=== PATIENT | male | born 1970 | race Caucasian/White ===

== ENCOUNTER 2017-06-23 16:35 | Emergency (ER) | payer BC ==
[~2017-06-23] VITALS: Ht 185.4 cm; Wt 128.0 kg
[2017-06-23 16:39] VITALS: BP 185/96; PULSE 87; RESP 24; TEMP 98.1; O2SAT 98
[2017-06-23] MEDS ORDERED: MORPHINE SULFATE 4 MG/ML INJ IV PUSH ONE (17:15)
[2017-06-23] MEDS ORDERED: ONDANSETRON HCL 4 MG/2 ML VIAL IV PUSH ONE (17:15)
[2017-06-23] MEDS ORDERED: SODIUM CHLOR 0.9% 1000 ML INJ 1,000 ML IV SCH (17:15)
[2017-06-23 17:17] VITALS: BP 177/92; PULSE 85; RESP 19; O2SAT 98
--- NOTE | 2017-06-23 17:21 | PD ---
HPI Chief Complaint: Headache Time Seen by Provider: 17:13 Travel History International Travel<30 days: No Contact w/Intl Traveler<30days: No Traveled to known affect area: No History of Present Illness HPI 47 years old male complains of headache. Patient states that headache nausea vomiting started about 2 weeks ago. Patient states the headache that he was seen at the walk-in clinic in [place] and was diagnosed with sinusitis. Patient was seen in emergency room after that. Patient states that he had EKG and blood tests done and was discharged home. Patient states that he has been doing well until headache started again about 4 days ago. Patient states that headache is severe throbbing headache diffuse over the head. Patient denies any visual change. Patient complains of photophobia. Patient denies any nausea vomiting. Patient denies any neck pain. Patient denies any chest pain or shortness of breath. Patient denies abdominal pain. Patient denies any focal weakness or numbness of extremity. Patient denies any recent head injury. Patient denies any fever chills. PFSH Social History Tobacco Use: No Allergies-Medications (Allergen,Severity, Reaction): Coded Allergies: meperidine (Verified Allergy, Intermediate, HIVES, 06/24/17) Reported Meds & Prescriptions Reported Meds & Active Scripts Active Ultram (Tramadol HCl) 50 Mg Tab 50 Mg PO Q6H PRN Augmentin (Amoxicillin-Clavulanate) 875-125 Mg Tab 1 Tab PO BID Review of Systems General / Constitutional: No: Fever Eyes: Positive: Photophobia, No: Visual changes HENT: Positive: Headaches Cardiovascular: No: Chest Pain or Discomfort Respiratory: No: Shortness of Breath Gastrointestinal: No: Abdominal Pain Genitourinary: No: Dysuria Musculoskeletal: No: Pain Skin: No Rash Neurologic: No: Weakness Psychiatric: No: Depression Endocrine: No: Polydipsia Hematologic/Lymphatic: No: Easy Bruising Physical Exam Narrative GENERAL: Well-nourished, well-developed patient. SKIN: Focused skin assessment warm/dry. HEAD: Normocephalic. EYES: No scleral icterus. No injection or drainage. Pupils 2 mm equal reactive. NECK: Supple, trachea midline. No JVD or lymphadenopathy. No meningismus CARDIOVASCULAR: Regular rate and rhythm without murmurs, gallops, or rubs. RESPIRATORY: Breath sounds equal bilaterally. No accessory muscle use. GASTROINTESTINAL: Abdomen soft, non-tender, nondistended. MUSCULOSKELETAL: No cyanosis, or edema. BACK: Nontender without obvious deformity. No CVA tenderness. Neurologic exam: Patient's awake and alert oriented 3. No obvious focal neurological deficit. Data Data Last Documented VS Orders Orders Complete Blood Count With Diff (06/23/17 17:13) Comprehensive Metabolic Panel (06/23/17 17:13) Prothrombin Time / Inr (Pt) (06/23/17 17:13) Act Partial Throm Time (Ptt) (06/23/17 17:13) Ct Brain W/O Iv Contrast(Rout) (06/23/17 17:13) Iv Access Insert/Monitor (06/23/17 17:13) Ecg Monitoring (06/23/17 17:13) Oximetry (06/23/17 17:13) Sodium Chlor 0.9% 1000 Ml Inj (Ns 1000 M (06/23/17 17:15) Morphine Inj (Morphine Inj) (06/23/17 17:15) Ondansetron Inj (Zofran Inj) (06/23/17 17:15) Diphenhydramine Inj (Benadryl Inj) (06/23/17 18:15) Ketorolac Inj (Toradol Inj) (06/23/17 18:15) Labs Laboratory Tests Test 06/23/17 17:25 White Blood Count 9.7 TH/MM3 Red Blood Count 4.35 MIL/MM3 Hemoglobin 13.7 GM/DL Hematocrit 38.4 % Mean Corpuscular Volume 88.3 FL Mean Corpuscular Hemoglobin 31.6 PG Mean Corpuscular Hemoglobin Concent 35.8 % Red Cell Distribution Width 13.9 % Platelet Count 317 TH/MM3 Mean Platelet Volume 8.5 FL Neutrophils (%) (Auto) 64.4 % Lymphocytes (%) (Auto) 24.4 % Monocytes (%) (Auto) 9.6 % Eosinophils (%) (Auto) 1.0 % Basophils (%) (Auto) 0.6 % Neutrophils # (Auto) 6.3 TH/MM3 Lymphocytes # (Auto) 2.4 TH/MM3 Monocytes # (Auto) 0.9 TH/MM3 Eosinophils # (Auto) 0.1 TH/MM3 Basophils # (Auto) 0.1 TH/MM3 CBC Comment DIFF FINAL Differential Comment Prothrombin Time 11.2 SEC Prothromb Time International Ratio 1.0 RATIO Activated Partial Thromboplast Time 26.8 SEC Blood Urea Nitrogen 14 MG/DL Creatinine 1.00 MG/DL Random Glucose 89 MG/DL Total Protein 7.2 GM/DL Albumin 3.6 GM/DL Calcium Level 8.4 MG/DL Alkaline Phosphatase 101 U/L Aspartate Amino Transf (AST/SGOT) 12 U/L Alanine Aminotransferase (ALT/SGPT) 27 U/L Total Bilirubin 0.6 MG/DL Sodium Level 135 MEQ/L Potassium Level 3.7 MEQ/L Chloride Level 102 MEQ/L Carbon Dioxide Level 26.9 MEQ/L Anion Gap 6 MEQ/L Estimat Glomerular Filtration Rate 80 ML/MIN [facility] Medical Decision Making Medical Screen Exam Complete: Yes Emergency Medical Condition: Yes Interpretation(s) [address] scan of the brain showed no acute pathology. Mild mucosal thickening right maxillary sinus. CBC within normal limit. Differential Diagnosis Differential diagnosis including migraine headache, tension headache, cluster headache, encephalitis. Narrative Course 47 years old male with severe headache and photophobia. Morphine 4 mg IV. Zofran 4 mg IV. Toradol 30 mg IV. Benadryl 50 mg IV. Diagnosis Primary Impression: Cephalgia Qualified Codes: R51 - Headache Additional Impression: Sinusitis Qualified Codes: J01.00 - Acute maxillary sinusitis, unspecified Patient Instructions: General Instructions Additional Instructions: Take medications as directed. Follow-up with local physician and neurologist. Return immediately if severe intractable headache, fever, stiff neck, persistent vomiting. Med/Other Pt SpecificInfo: Prescription(s) given Scripts Tramadol (Ultram) 50 Mg Tab 50 MG PO Q6H Y for HEADACHE, #20 TAB 0 Refills Prov: Oscar Villareal MD 06/23/17 Amoxicillin-Clavulanate (Augmentin) 875-125 Mg Tab 1 TAB PO BID for Infection, #20 TAB 0 Refills Prov: Oscar Villareal MD 06/23/17 Disposition: 01 DISCHARGE HOME Condition: Stable Oscar Villareal MD Jun 23, 2017 17:21
[2017-06-23 17:50] LABS: AUTOMATED NEUTROPHIL # 6.3 TH/MM3 (1.8-7.7); BASOPHIL # 0.1 TH/MM3 (0-0.2); BASOPHIL % 0.6 % (0.0-2.0); EOSINOPHIL # 0.1 TH/MM3 (0-0.4); HEMATOCRIT 38.4 % (39.0-51.0); HEMO FLAGS DIFF FINAL; LYMPH % 24.4 % (9.0-44.0); LYMPHOCYTE # 2.4 TH/MM3 (1.0-4.8); MEAN CELL VOLUME 88.3 FL (80.0-100.0); MEAN CORPUSCULAR HEMOGLOBIN 31.6 PG (27.0-34.0); MEAN CORPUSCULAR HGB CONC 35.8 % (32.0-36.0); MONO % 9.6 % (0.0-8.0); NEUT % 64.4 % (16.0-70.0); PLATELET COUNT 317 TH/MM3 (150-450); RED BLOOD COUNT 4.35 MIL/MM3 (4.50-5.90); RED CELL DISTRIBUTION WIDTH 13.9 % (11.6-17.2); WHITE BLOOD COUNT 9.7 TH/MM3 (4.0-11.0)
[2017-06-23 18:00] LABS: APTT (PATIENT) 26.8 SEC (24.3-30.1); PROTHROMBIN TIME - PATIENT 11.2 SEC (9.8-11.6)
[2017-06-23 18:02] VITALS: O2SAT 98
--- NOTE | 2017-06-23 18:06 | RADRPT ---
EXAM DATE/TIME: 06/23/2017 17:46 [facility] COMPARISON: No previous studies available for comparison. INDICATIONS : Patient complains of severe headache. RADIATION DOSE: 38.13 CTDIvol (mGy) MEDICAL HISTORY : None SURGICAL HISTORY : None. ENCOUNTER: Initial ACUITY: 1 day PAIN SCALE: 10/10 LOCATION: cranial TECHNIQUE: Multiple contiguous axial images were obtained of the head. Using automated exposure control and adj ustment of the mA and/or kV according to patient size, radiation dose was kept as low as reasonably a chievable to obtain optimal diagnostic quality images. DICOM format image data is available electro nically for review and comparison. FINDINGS: CEREBRUM: The ventricles are normal for age. No evidence of midline shift, mass lesion, hemorrhage or acute in farction. No extra-axial fluid collections are seen. POSTERIOR FOSSA: The cerebellum and brainstem are intact. The 4th ventricle is midline. The cerebellopontine angle i s unremarkable. EXTRACRANIAL: The visualized portion of the orbits is intact. Mild mucosal thickening is noted within the right max illary sinus. SKULL: The calvaria is intact. No evidence of skull fracture. CONCLUSION: No acute intracranial abnormality. Mild mucosal thickening within right maxillary sin us. Ang Mariee MD on June 23, 2017 at 18:04 Board Certified Radiologist. This report was verified electronically.
[2017-06-23 18:15] LABS: ALT (GPT) 27 U/L (12-78); ANION GAP 6 MEQ/L (5-15); AST (GOT) 12 U/L (15-37); BICARBONATE 26.9 MEQ/L (21.0-32.0); BLOOD UREA NITROGEN 14 MG/DL (7-18); CHLORIDE 102 MEQ/L (98-107); GLOMERULAR FILTRATION RATE 80 ML/MIN (>89); POTASSIUM 3.7 MEQ/L (3.5-5.1); SODIUM (NA) 135 MEQ/L (136-145)
[2017-06-23] MEDS ORDERED: diphenhydrAMINE HCL 50 MG/ML VIAL IV PUSH ONE (18:15)
[2017-06-23] MEDS ORDERED: KETOROLAC TROMETHAMINE 30 MG/ML (IVP) VIAL IV PUSH ONE (18:15)
[2017-06-23 18:17] LABS: ALKALINE PHOSPHATASE 101 U/L (45-117); TOTAL BILIRUBIN ADULT 0.6 MG/DL (0.2-1.0)
[2017-06-23] MEDS ORDERED: ZOFR4TAB3 SL (18:45)
[2017-06-23] MEDS ORDERED: AUGM875T3 PO (18:45)
[2017-06-23] MEDS ORDERED: BUTA1CAP PO (18:45)
[2017-06-23] MEDS ORDERED: ULTR50TA5 PO (18:45)
== END 2017-06-23 19:44 | disposition home or self-care (01) ==
LOC: NEPD 16:35
DX: R51 Headache (principal); J01.00 Acute maxillary sinusitis, unspecified; R11.2 Nausea with vomiting, unspecified
CPT/HCPCS: 70450; 80053; 85025; 85610; 85730; 96361; 96374; 96375; 99285; J1200; J1885; J2270; J2405; J7030

== ENCOUNTER 2017-06-24 19:01 | Emergency (ER) | payer BC ==
[~2017-06-24] VITALS: Ht 185.4 cm; Wt 125.0 kg
[~2017-06-24 19:01] MED LIST: AUGM875T3 PO; BUTA1CAP PO; ULTR50TA5 PO; ZOFR4TAB3 SL
[2017-06-24 19:04] VITALS: BP 182/99; PULSE 101; RESP 22; TEMP 98.2; O2SAT 100
[2017-06-24 19:27] VITALS: BP 160/91; PULSE 93; RESP 14; O2SAT 100
[2017-06-24] MEDS ORDERED: SODIUM CHLOR 0.9% 1000 ML INJ 1,000 ML IV ONE (19:35)
--- NOTE | 2017-06-24 19:38 | PD ---
HPI Chief Complaint: Headache Time Seen by Provider: 19:30 Travel History International Travel<30 days: No Contact w/Intl Traveler<30days: No Traveled to known affect area: No History of Present Illness HPI 47-year-old male patient arrives to the emergency department for evaluation of headache. Patient is currently moaning, grabbing his head. Patient appears to be unsteady on his feet ambulating and had sudden onset nausea and diaphoresis. Patient was trying to admit to the restroom in the emergency department upon arrival when these acute symptoms appeared. Patient states this is the first time nausea has been associated with this migraine. Patient has had been struggling with intermittent headaches for several weeks now. Patient was in [place] for [place] and was evaluated at a hospital there and treated for sinusitis. Patient states the symptoms resolved for approximately 8 days and then reappeared. Patient denies any chest pain, shortness of breath, fevers , chills, malaise, urinary symptoms, sore throat, runny nose, weakness. Patient states the migraine pain is generalized, not located in one particular region. Patient complains of pulsating pain and photophobia. Patient was evaluated for his headache at our facility last night. PFSH Social History Alcohol Use: No Tobacco Use: No Substance Use: No Allergies-Medications (Allergen,Severity, Reaction): Coded Allergies: meperidine (Verified Allergy, Intermediate, HIVES, 06/24/17) Reported Meds & Prescriptions Reported Meds & Active Scripts Active Ultram (Tramadol HCl) 50 Mg Tab 50 Mg PO Q6H PRN Augmentin (Amoxicillin-Clavulanate) 875-125 Mg Tab 1 Tab PO BID Review of Systems Except as stated in HPI: all other systems reviewed are Neg Eyes: Positive: Photophobia HENT: Positive: Headaches Physical Exam Narrative GENERAL: 47-year-old male patient appears to be experiencing pain. Patient moaning, writhing and grabbing his head with his eyes closed. SKIN: Focused skin assessment warm/dry. HEAD: Atraumatic. Normocephalic. EYES: Pupils equal and round. No scleral icterus. No injection or drainage. ENT: No nasal bleeding or discharge. Mucous membranes pink and moist. NECK: Trachea midline. No JVD. CARDIOVASCULAR: Regular rate and rhythm. No murmur appreciated. RESPIRATORY: No accessory muscle use. Clear to auscultation. Breath sounds equal bilaterally. GASTROINTESTINAL: Abdomen soft, non-tender, nondistended. Hepatic and splenic margins not palpable. MUSCULOSKELETAL: No obvious deformities. No clubbing. No cyanosis. No edema. NEUROLOGICAL: Awake and alert. No obvious cranial nerve deficits. Motor grossly within normal limits. Normal speech. No focal neurological deficits. Data Data Last Documented VS Vital Signs Date Time Temp Pulse Resp B/P (MAP) Pulse Ox O2 Delivery O2 Flow Rate FiO2 06/24/17 19:45 100 Nasal Cannula 2.00 06/24/17 19:27 93 14 06/24/17 19:04 98.2 Orders Orders Complete Blood Count With Diff (06/24/17 19:35) Basic Metabolic Panel (Bmp) (06/24/17 19:35) Prothrombin Time / Inr (Pt) (06/24/17 19:35) Act Partial Throm Time (Ptt) (06/24/17 19:35) Ecg Monitoring (06/24/17 19:35) Iv Access Insert/Monitor (06/24/17 19:35) Oximetry (06/24/17 19:35) Sodium Chloride 0.9% Flush (Ns Flush) (06/24/17 19:45) Metoclopramide Inj (Reglan Inj) (06/24/17 19:45) Sodium Chlor 0.9% 1000 Ml Inj (Ns 1000 M (06/24/17 19:35) Dexamethasone Inj (Decadron Inj) (06/24/17 19:45) Diphenhydramine Inj (Benadryl Inj) (06/24/17 19:45) Electrocardiogram (06/24/17 ) Mra Carotids W Contrast (06/24/17 ) Mri Brain W&W/O Contrast (06/24/17 20:19) Magnesium Sulfate 1 Gm Premix (Magnesium (06/24/17 21:00) Mra Brain W/O Contrast (Cow) (06/24/17 ) Gadodiamide Pf Inj (Omniscan Pf Inj) (06/24/17 22:09) Ketorolac Inj (Toradol Inj) (06/24/17 22:45) Labs Laboratory Tests Test 06/24/17 19:45 White Blood Count 11.8 TH/MM3 Red Blood Count 4.60 MIL/MM3 Hemoglobin 13.5 GM/DL Hematocrit 40.7 % Mean Corpuscular Volume 88.3 FL Mean Corpuscular Hemoglobin 29.3 PG Mean Corpuscular Hemoglobin Concent 33.2 % Red Cell Distribution Width 13.5 % Platelet Count 400 TH/MM3 Mean Platelet Volume 8.1 FL Neutrophils (%) (Auto) 64.8 % Lymphocytes (%) (Auto) 24.4 % Monocytes (%) (Auto) 9.0 % Eosinophils (%) (Auto) 0.9 % Basophils (%) (Auto) 0.9 % Neutrophils # (Auto) 7.7 TH/MM3 Lymphocytes # (Auto) 2.9 TH/MM3 Monocytes # (Auto) 1.1 TH/MM3 Eosinophils # (Auto) 0.1 TH/MM3 Basophils # (Auto) 0.1 TH/MM3 CBC Comment DIFF FINAL Differential Comment Prothrombin Time 10.4 SEC Prothromb Time International Ratio 0.9 RATIO Activated Partial Thromboplast Time 26.1 SEC Blood Urea Nitrogen 15 MG/DL Creatinine 1.09 MG/DL Random Glucose 89 MG/DL Calcium Level 8.6 MG/DL Sodium Level 132 MEQ/L Potassium Level 3.9 MEQ/L Chloride Level 101 MEQ/L Carbon Dioxide Level 21.3 MEQ/L Anion Gap 10 MEQ/L Estimat Glomerular Filtration Rate 73 ML/MIN MDM Medical Decision Making Medical Screen Exam Complete: Yes Emergency Medical Condition: Yes Medical Record Reviewed: Yes Differential Diagnosis Cephalgia versus aneurysm versus CVA versus migraine Narrative Course 47-year-old male patient presents to emergency department for evaluation of cephalgia. Patient has been experiencing intermittent cephalgia for several weeks. Patient was in [place] for her to a republican when the pain initially started. Patient went to the emergency department in [place] for evaluation of the pain and was treated for sinusitis. Patient said he was better for approximately 8 days but the pain has returned. Patient was evaluated for this headache at her facility last night. CT of the brain ordered last night was negative. Patient denies any chest pain, shortness breath, fever, chills, malaise, weakness, vomiting, diarrhea or abdominal pain. Patient had an acute episode of nausea and diaphoresis upon arrival to the emergency department however the symptoms have resolved at this time. Patient case discussed with my attending and per Dr. Badillo's recommendation MRI and MRA of brain and neck ordered and pending. EKG, CBC, BMP, PT/INR ordered and pending. Patient's pain was treated with a migraine cocktail including 5 mg IV Reglan, 10 mg IV dexamethasone, 25 mg IV Benadryl, 1 L normal saline bolus. Patient's pain reassessed after medication and patient states pain has subsided greatly. Patient was rating headache at a 10 out of 10 upon arrival and it is a 5 out of 10 currently. Patient reassessed after magnesium infusion and he has near resolution of all symptoms. Patient case discussed with my attending Dr. Badillo. Dr Badillo offered patient a lumbar puncture to rule out any bleeding or infection in the CSF. Patient states he is feeling better currently. Patient will return to the emergency department with any worsening conditions or increasing pain. Patient will be discharged home with instructions to follow-up with primary care and neurology. Patient will be given copies of MRI and MRA reports. Plan of care discussed with patient and patient is agreeable. Patient instructed to return the emergency Department with any new or worsening symptoms. EKG shows sinus rhythm with heart rate CBC shows mild leukocytosis with a WBCs 11.8 BMP shows mild hyponatremia at 132 PT/INR shows no acute abnormalities MRI BRAIN shows no acute disease MRA CAROTID shows no acute abnormality MRA BRAIN shows no significant intracranial stenosis, occlusion or aneurysm Diagnosis Primary Impression: Headache Referrals: Primary Care Physician Patient Instructions: Acute Headache (ED), General Instructions Additional Instructions: Return to the emergency department with any neurological symptoms, worsening condition or increasing pain. Follow-up with primary care physician and neurologist. Disposition: 01 DISCHARGE HOME Condition: Stable ShayAshlee perrinpanchito RAMIREZ Jun 24, 2017 19:38
[2017-06-24 19:45] VITALS: O2SAT 100
[2017-06-24] MEDS ORDERED: SODIUM CHLORIDE 0.9% FLUSH 10 ML FLUSH IVF PRN (19:45)
[2017-06-24] MEDS ORDERED: diphenhydrAMINE HCL 50 MG/ML VIAL IV PUSH ONE (19:45)
[2017-06-24] MEDS ORDERED: METOCLOPRAMIDE HCL 10 MG/2 ML VIAL IVP ONE (19:45)
[2017-06-24] MEDS ORDERED: DEXAMETHASONE SOD PHOS 20 MG/5 ML VIAL IV PUSH ONE (19:45)
[2017-06-24 19:57] LABS: AUTOMATED NEUTROPHIL # 7.7 TH/MM3 (1.8-7.7); BASOPHIL # 0.1 TH/MM3 (0-0.2); BASOPHIL % 0.9 % (0.0-2.0); EOSINOPHIL # 0.1 TH/MM3 (0-0.4); EOSINOPHIL % 0.9 % (0.0-4.0); HEMATOCRIT 40.7 % (39.0-51.0); HEMO FLAGS DIFF FINAL; LYMPH % 24.4 % (9.0-44.0); LYMPHOCYTE # 2.9 TH/MM3 (1.0-4.8); MEAN CELL VOLUME 88.3 FL (80.0-100.0); MEAN CORPUSCULAR HEMOGLOBIN 29.3 PG (27.0-34.0); MEAN CORPUSCULAR HGB CONC 33.2 % (32.0-36.0); NEUT % 64.8 % (16.0-70.0); PLATELET COUNT 400 TH/MM3 (150-450); RED CELL DISTRIBUTION WIDTH 13.5 % (11.6-17.2); WHITE BLOOD COUNT 11.8 TH/MM3 (4.0-11.0)
[2017-06-24 20:07] LABS: APTT (PATIENT) 26.1 SEC (24.3-30.1); INTERNATIONAL NORMALIZED RATIO 0.9 RATIO; PROTHROMBIN TIME - PATIENT 10.4 SEC (9.8-11.6)
[2017-06-24 20:22] LABS: BICARBONATE 21.3 MEQ/L (21.0-32.0); POTASSIUM 3.9 MEQ/L (3.5-5.1)
[2017-06-24] MEDS ORDERED: MAGNESIUM SULFATE 1 GM PREMIX 100 ML IV ONE (21:00)
--- NOTE | 2017-06-24 22:02 | RADRPT ---
EXAM DATE/TIME: 06/24/2017 21:13 [facility] COMPARISON: No previous studies available for comparison. INDICATIONS : Aneurysm. MEDICAL HISTORY : Hypertension. SURGICAL HISTORY : None. ENCOUNTER: Subsequent ACUITY: 4-6 days PAIN SCORE: 8/10 LOCATION: cranial Please note a normal MRA of the brain does not entirely exclude the possibility of a small aneurysm, nor the possibility of distal intracranial vessel disease. TECHNIQUE: 3D time of flight MRA was performed. Source images, multiplanar STS MIP, and 3D volume MIP reconstru ctions were reviewed. FINDINGS: There is excellent visualization of the major intracranial arteries out to the second-order branch ve ssels. There is no evidence for aneurysm, vessel truncation or stenosis, and no evidence for vascula r malformation. There is a patent right posterior communicating artery. CONCLUSION: 1. No significant intracranial stenosis, occlusion or aneurysm. 2. Patent right posterior communicating artery. Ang Mariee MD on June 24, 2017 at 21:59 Board Certified Radiologist. This report was verified electronically.
[2017-06-24] MEDS ORDERED: GADODIAMIDE PF 287 MG/ML 20 ML VIAL (for RAD MRI) IVCONTRAST ONE (22:09)
--- NOTE | 2017-06-24 22:10 | RADRPT ---
EXAM DATE/TIME: 06/24/2017 21:13 [place] Corrected on: June 24, 2017; [facility] COMPARISON: No previous studies available for comparison. INDICATIONS : Aneurysm. CONTRAST: 20 cc Omniscan (gadodiamide) IV MEDICAL HISTORY : Hypertension. SURGICAL HISTORY : None. ENCOUNTER: Subsequent ACUITY: 4-6 days PAIN SCORE: 8/10 LOCATION: cranial TECHNIQUE: Multiplanar, multisequence MRI of the brain was performed both prior to and following the administrat ion of paramagnetic contrast. FINDINGS: CEREBRUM: The ventricles are normal for age. No evidence of midline shift, mass lesion, hemorrhage or acute in farction. No extraaxial fluid collections are seen. The pituitary gland and suprasellar cistern are normal in configuration. WHITE MATTER: No significant signal abnormalities are seen in the white matter. POSTERIOR FOSSA: The cerebellum and brainstem are intact. The 4th ventricle is midline. The cerebellopontine angle is unremarkable. The cerebellar tonsils are normal in position. DIFFUSION IMAGING: No focal areas of restricted diffusion are seen. No evidence of acute infarction. EXTRACRANIAL: The visualized portions of the orbits are unremarkable. Mild mucosal thickening is noted within the r ight maxillary sinus. POST-CONTRAST: No abnormal areas of parenchymal or dural enhancement. No evidence of blood-brain barrier breakdown. CONCLUSION: 1. No acute intracranial abnormality. 2. Mild mucosal thickening within right maxillary sinus. Ang Mariee MD on June 24, 2017 at 22:06 Board Certified Radiologist. This report was verified electronically. Ang Mariee MD on June 24, 2017 at 22:14 Board Certified Radiologist. This report was verified electronically.
--- NOTE | 2017-06-24 22:12 | RADRPT ---
EXAM DATE/TIME: 06/24/2017 21:13 [facility] COMPARISON: MRI BRAIN W & W/O CONTRAST, June 24, 2017, 21:13. INDICATIONS : Migraines. CONTRAST: 20 cc Omniscan (gadodiamide) IV MEDICAL HISTORY : Hypertension. SURGICAL HISTORY : None. ENCOUNTER: Subsequent ACUITY: 4-6 days PAIN SCORE: 8/10 LOCATION: cranial Percent stenosis is calculated using the diameter of the stenotic region over the diameter of the nor mal distal internal carotid artery. TECHNIQUE: Bolus infused MRA of the extracranial circulation was performed using a neurovascular coil. Post pro cessing was performed including rotating subvolume maximum intensity projections of each carotid emiliano ry, rotating full volume maximum intensity projections of both carotid arteries, sagittal and coronal sliding thin slab reformations of each carotid artery, and left oblique sliding thin slab reformatio n through the aortic arch to include the origin of the arch branch vessels. FINDINGS: AORTIC ARCH: There is a three vessel origin of the great vessels from the aorta. No evidence of ostial narrowing. RIGHT CAROTID: The common carotid artery is intact. The carotid bulb has a normal configuration without ulceration or narrowing. The internal carotid artery lumen is smooth without stenosis. The external carotid ar mary is intact. LEFT CAROTID: The common carotid artery is intact. The carotid bulb has a normal configuration without ulceration or narrowing. The internal carotid artery lumen is smooth without stenosis. The external carotid ar mary is intact. VERTEBRALS: The vertebral arteries have a symmetric diameter. No stenotic lesions are seen. CONCLUSION: No acute disease. Ang Mariee MD on June 24, 2017 at 22:10 Board Certified Radiologist. This report was verified electronically.
[2017-06-24] MEDS ORDERED: KETOROLAC TROMETHAMINE 30 MG/ML (IVP) VIAL IV PUSH ONE (22:45)
[2017-06-24 23:14] VITALS: BP 136/70
--- NOTE | 2017-06-25 20:51 | EKG ---
Date Performed: 06/24/2017 Time Performed: 20:56:10 PTAGE: 47 years EKG: Sinus rhythm LOW QRS VOLTAGE IN PRECORDIAL LEADS MINIMAL VOLTAGE CRITERIA FOR LVH, CONSIDER NORMAL VARIANT BORDER LINE ECG NO PREVIOUS TRACING DOCTOR: Adama Noel Interpretating Date/Time 06/25/2017 20:46:11
== END 2017-06-24 23:42 | disposition home or self-care (01) ==
LOC: NEPC 19:01
DX: R51 Headache (principal); R11.0 Nausea; R61 Generalized hyperhidrosis; R94.31 Abnormal electrocardiogram [ECG] [EKG]; H53.149 Visual discomfort, unspecified
CPT/HCPCS: 70544; 70548; 70553; 80048; 85025; 85610; 85730; 93005; 96374; 96375; 99285; A9579; J1100; J1200; J1885; J2765; J3475; J7030